=== PATIENT | female | born 1945 | race Caucasian/White ===

== ENCOUNTER → 2016-07-06 | Outpatient (CLI) | payer BC ==
[~2016-07-06] MED LIST: ADVIL200 M1 PO; ASPIRIN PO; AVAPRO PO; AZULFIDINE PO; CALCIUM 500 + D1 TAB PO; CALCIUM 600 +1 EA11 PO; COLACE PO; EFFEXOR PO; FOLIC ACID PO; HYDROCODON-ACE1 EAC7 PO; IMURAN50 MG PO; KEFLEX500 MG PO; LORTAB 10-5001 EACH PO; METHOTREXATE2.5 MG PO; NORVASC10 MG PO; PERCOCET; PHENERGAN25 M1 PO; PLAQUENIL200 MG PO; PRAVACHOL PO; PRILOSEC20 M1 PO; PROTONIX PO; SYNTHROID PO; SYNTHROID125 PO; VENLAFAXINE H37.5 M2 PO; VITAMIN D; ZINC; [UNRECOGNIZED DRUG - OTHER]
--- NOTE | ~2016-07-06 | CT57 ---
[facility] A Service of [facility] & [facility] RADIOLOGY TEXT RESULTS PATIENT: CHALO DICKSON LOCATION: [facility] : 43 UNIT #: [id number] AGE: [address]: Tae Sauceda MD SEX: F ORDER DR: [id number] [facility] [address] [facility]. [place], [place] [address] [id number] O MR#: [id number] Acc #: [id number] NAME: CHALO DICKSON : 1945 SEX: F STUDY DATE/TIME: 07/06/2016 14:15 UNIT: [facility] ROOM: STUDY DESCRIPTION: CT Chest Wo Cont Attending Physician: Tae Sauceda M.D. Referring Physician: Tae Sauceda M.D. Ordering Physician: Tae Sauceda M.D. Primary Care Physician: Guadalupe Neri M.D. MEDICAL IMAGING REPORT This report is preliminary unless electronic signature is present EXAM High-resolution chest CT INDICATIONS Followup pulmonary fibrosis. Shortness of breath for [address] of the chest was performed without contrast. Selected HRCT imaging was obtained in the supine and prone positioning. Comparison is made with 07/07/2013. The CT exam was performed with one or more of the following radiation dose reduction techniques: automatic exposure control, adjustment of mA and/or kV according to patient size, and iterative reconstruction. FINDINGS Redemonstrated are interstitial fibrotic changes within the lung. There is stable lower zone prominent pulmonary fibrosis with traction bronchiectasis, interstitial thickening and honeycombing. There is also scarring, volume loss and bronchiectasis within the left upper lobe without similar features in the right upper lobe. Patient had history of left mastectomy and left breast cancer and this is felt to represent probably postradiation change. The scarring in the left apex has become more confluent. There is no evidence for suspicious pulmonary nodule. There is no suspicious lymphadenopathy or pleural effusion. Coronary artery calcifications. Limited imaging of the upper abdomen unremarkable. Bone windows are unremarkable. IMPRESSION 1. There is bilateral lower zone predominant interstitial pulmonary fibrosis with honeycombing the degree of which is not significantly STS. [facility] A Service of [facility] & [facility] RADIOLOGY TEXT RESULTS PATIENT: CHALO DICKSON [facility] UNIT #: [id number] AGE: [address]: Tae Sauceda MD SEX: F ORDER DR: changed compared with study from 2013. 2. There is scarring, volume loss and bronchiectasis involving the left upper lobe with more confluent scarring in the left apex compared with the previous study. This is felt to most likely represent post-treatment change as the patient has a history of left breast cancer. Dictated by... Darrel Caldwell M.D. THIS IS AN ELECTRONICALLY VERIFIED REPORT Darrel Caldwell M.D. at 07/08/2016 5:12 PM Aramis TD: 07/07/2016 08:34 JOB #: [id number] MEDICAL IMAGING REPORT Page 1 of 1 COPY
== END | disposition home or self-care (01) ==
LOC: CCAT 13:53
DX: J84.9 Interstitial pulmonary disease, unspecified (principal); J84.10 Pulmonary fibrosis, unspecified; J98.4 Other disorders of lung
CPT/HCPCS: 71250

== ENCOUNTER → 2016-07-24 | Outpatient (CLI) | payer BC ==
--- NOTE | ~2016-07-24 | MY8 ---
[facility] A Service of [facility] & [facility] RADIOLOGY TEXT RESULTS PATIENT: CHALO DICKSON LOCATION: [facility] : 43 UNIT #: [id number] AGE: [address]: Guadalupe Neri MD SEX: F ORDER DR: [id number] [facility] [address] [facility] [address] [facility]. [place], [place] [address] [id number] O MR#: [id number] Acc #: [id number] NAME: CHALO DICKSON : 1945 SEX: F STUDY DATE/TIME: 07/24/2016 13:29 UNIT: [facility] ROOM: STUDY DESCRIPTION: MY Mammogram Dx Dig Rt Attending Physician: Guadalupe Neri M.D. Ordering Physician: Guadalupe Neri M.D. Primary Care Physician: Guadalupe Neri M.D. MEDICAL IMAGING REPORT This report is preliminary unless electronic signature is present EXAM Unilateral right digital diagnostic mammogram and targeted right breast ultrasound, 07/24/2016 INDICATION 70-year-old female complaining of a palpable lump in the approximate 12 o'clock position right breast for the past month. History of breast cancer on the left status post mastectomy. Mastectomy in 2000. Additional history of Hodgkin's lymphoma. Status post chemotherapy and radiation therapy in 2001 and 2009. Family history of breast cancer in the patient's mother at age 50. TECHNIQUE CC, MLO and true lateral views of the right breast along with compression CC and compression MLO views of the right breast were obtained and reviewed with an FDA-approved CAD device. COMPARISON 07/01/2015, 06/20/2014, 11/07/2013, 05/06/2013 and 05/04/2013. FINDINGS The area of palpable concern was marked on the patient's skin by the technologist. Deep to the marker there is a 1.6 cm stellate asymmetry with small speckled microcalcifications that are indeterminate. This is new compared to the prior mammograms. Imaging features are suspicious for malignancy. The abnormality partially effaces with spot compression but persists. Remainder of the right breast demonstrates benign-appearing vascular and other benign dystrophic calcifications. There are biopsy clips in the upper outer right breast at about the 10 o'clock position, separate from the new intervally occurring stellate mass. There is no adenopathy. Ultrasound was thereafter performed. ULTRASOUND FINDINGS: The patient was initially scanned independently by [facility]. [facility] A Service of [facility] RADIOLOGY TEXT RESULTS PATIENT: CHALO DICKSON LOCATION: [facility] : 43 UNIT #: [id number] AGE: [address]: Guadalupe Neri MD SEX: F ORDER DR: the technologist and then rescanned in my presence. Limited physical exam (with patient consent) was also performed and demonstrates a hard fixed mass in the 12 o'clock position right breast about 5.0 cm from the nipple corresponding to the mammographic abnormality. Ultrasound demonstrates a hypoechoic solid irregularly marginated and angulated mass at 12 o'clock measuring about 1.8 x 1.7 x 1.7 cm. There is internal color flow and there is some degree of posterior acoustical shadowing. Imaging findings are concordant and highly suspicious for malignancy. Ultrasound-guided core biopsy is recommended for further assessment. In the 11 o'clock position of the right breast 5.0 cm from nipple, there is an oval-shaped wider than tall hypoechoic solid mass-like area measuring approximately 2.7 x 2.3 x 0.9 cm. There is no distinct correlate on the mammogram. Suggest ultrasound-guided core biopsy of this area as well. Findings and recommendation for biopsy have been discussed with the patient. She is not on any blood thinners that would preclude biopsy. I have also personally contacted the breast manager long term care regarding recommendations for biopsy and the office of Dr. Guadalupe Neri will be contacted regarding the need for biopsy and scheduling of the procedure. The patient has voiced understanding and agreement with respect to the need for biopsy. IMPRESSION 1. Abnormal examination. New suspicious stellate mass in the 12 o'clock position of the right breast visible mammographically and on ultrasound and palpable to the patient and myself. This should be further evaluated with ultrasound-guided core biopsy. See discussion above. The breast manager long term care and the patient are both aware of the recommendation for biopsy. 2. There is an additional, wider than tall but solid appearing mass in the 11 o'clock position right breast. It is only visible with ultrasound and should also be further evaluated with ultrasound-guided core biopsy. Patients over the age of 40 are entered into a reminder system with target due date for the next mammogram. A result letter will also be sent to the patient. BIRADS 4 Suspicious Abnormality; Biopsy Should Be Considered STAT * RESULT Dictated by... Brandon Blood M.D. THIS IS AN ELECTRONICALLY VERIFIED REPORT Brandon Blood M.D. at 07/24/2016 5:00 PM [facility] A Service of [facility] RADIOLOGY TEXT RESULTS PATIENT: CHALO DICKSON [id number] 43 UNIT #: [id number] AGE: [address]: Guadalupe Neri MD SEX: F ORDER DR: YNES/rosa m TD: 07/24/2016 14:37 JOB #: [id number] MEDICAL IMAGING REPORT Page 1 of 1 COPY
--- NOTE | ~2016-07-24 | US24 ---
[facility] A Service of [facility] & [facility] RADIOLOGY TEXT RESULTS PATIENT: CHALO DICKSON LOCATION: [facility] : 43 UNIT #: [id number] AGE: [address]: Guadalupe Neri MD SEX: F ORDER DR: [id number] [facility] [address] [facility]. [place], [place] [address] [id number] O MR#: [id number] Acc #: [id number] NAME: CHALO DICKSON : 1945 SEX: F STUDY DATE/TIME: 07/24/2016 13:58 UNIT: [facility] ROOM: STUDY DESCRIPTION: US Breast Unilateral Attending Physician: Guadalupe Neri M.D. Ordering Physician: Guadalupe Neri M.D. Primary Care Physician: Guadalupe Neri M.D. MEDICAL IMAGING REPORT This report is preliminary unless electronic signature is present EXAM Targeted ultrasound of the right breast 07/24/2016 INDICATIONS History of breast cancer on the left. Status post left mastectomy. New palpable lump in the right breast for the past month. Correlation with diagnostic mammography same date. Sonographic imaging of the area of palpable concern and in the area of the patient's mammographic abnormality of the right breast was performed. Result text under Unilateral right digital diagnostic mammogram and targeted right breast ultrasound 07/24/2016. Please see this order for result text. BIRADS: 4 - Suspicious abnormality - Biopsy should be considered STAT * RESULT Dictated by... Brandon Blood M.D. THIS IS AN ELECTRONICALLY VERIFIED REPORT Brandon Blood M.D. at 07/24/2016 4:59 PM Veena TD: 07/24/2016 15:05 JOB #: [id number] MEDICAL IMAGING REPORT Page 1 of 1 COPY
== END | disposition home or self-care (01) ==
LOC: CMAM 13:00
DX: N63 Unspecified lump in breast (principal); R92.8 Other abnormal and inconclusive findings on diagnostic imaging of breast
CPT/HCPCS: 76641; G0206

== ENCOUNTER → 2016-08-18 | Outpatient (CLI) | payer BC ==
--- NOTE | ~2016-08-18 | US200 ---
[facility] A Service of [facility] & [facility] RADIOLOGY TEXT RESULTS PATIENT: CHALO DICKSON LOCATION: [facility] : 43 UNIT #: [id number] AGE: [address]: Flavio Herrera MD SEX: F ORDER DR: [id number] [facility] [address] [facility]. [place], [place] [address] [id number] O MR#: [id number] Acc #: [id number] NAME: CHALO DICKSON. : 1945 SEX: F STUDY DATE/TIME: 08/18/2016 8:13 UNIT: [facility] ROOM: STUDY DESCRIPTION: US Breast Guided Bx 1st Lesion Attending Physician: Flavio Herrera M.D. Referring Physician: Flavio Herrera M.D. Ordering Physician: Flavio Herrera M.D. Primary Care Physician: Flavio Herrera M.D. MEDICAL IMAGING REPORT This report is preliminary unless electronic signature is present EXAM Ultrasound guided breast biopsies. INDICATION Right breast mass. History of left-sided breast cancer status post left nephrectomy. FINDINGS The risks and benefits of the procedure were discussed with the patient. Specifically, the risks of bleeding and infection were emphasized. The patient was given the opportunity to ask questions and informed consent was obtained. The patient's lesions in the right breast were reconfirmed with ultrasound. There is a large 1.8 cm mass 12 o'clock position right breast and a ovoid mass in the 11 o'clock position measuring 2.7 cm. The appropriate location of the superior right breast was marked for needle entry site. The area was prepped and draped in the usual sterile fashion. 1% lidocaine was infiltrated in the skin and along the expected path of the biopsy needle. Initially, the 12 o'clock mass was targeted. 3 14-gauge 2-cm biopsies were obtained with the Achieve biopsy needle. Samples were of excellent quality. Next, 3 14-gauge Achieve biopsies were obtained through the 11 o'clock lesion under ultrasound guidance. Pressure was held over the skin entry site and biopsy sites for 5 minutes for hemostasis. 2 clips, were deployed within the biopsy lesions. At the 12 o'clock position, a U-shaped clip was inserted. At the 11 o'clock position, bow-tie shaped clip was deployed. IMPRESSION STS. [facility] A Service of [facility] & [facility] RADIOLOGY TEXT RESULTS PATIENT: CHALO DICKSON LOCATION: [facility] : 43 UNIT #: [id number] AGE: [address]: Flavio Herrera MD SEX: F ORDER DR: Successful ultrasound-guided biopsy of 12 o'clock and 11 o'clock breast masses. Successful clip deployment status post biopsy. Dictated by... Kael Mccracken M.D. THIS IS AN ELECTRONICALLY VERIFIED REPORT Kael Mccracken M.D. at 08/18/2016 4:46 PM Krystina TD: 08/18/2016 13:58 JOB #: [id number] ADDENDUM The patient's pathology was reviewed. The final pathology was diagnosed as invasive carcinoma of the breast with apocrine features. This is concordant with the imaging findings. There is a second biopsied lesions at the 11 o'clock position that is also positive for malignancy. STAT * RESULT Dictated by... Kael Mccracken M.D. THIS IS AN ELECTRONICALLY VERIFIED REPORT Kael Mccracken M.D. at 08/30/2016 10:29 PM Skinny TD: 08/30/2016 10:48 JOB #: [id number] MEDICAL IMAGING REPORT Page 1 of 1 COPY
--- NOTE | ~2016-08-18 | MY14 ---
[facility] A Service of [facility] & [facility] RADIOLOGY TEXT RESULTS PATIENT: CHALO DICKSON LOCATION: [facility] : 43 UNIT #: [id number] AGE: [address]: Flavio Herrera MD SEX: F ORDER DR: [id number] [facility] [address] [place], [place] [address] [id number] O MR#: [id number] Acc #: [id number] NAME: CHALO DICKSON : 1945 SEX: F STUDY DATE/TIME: 08/18/2016 9:03 UNIT: [facility] ROOM: STUDY DESCRIPTION: MY Post Bx Film Attending Physician: Flavio Herrera M.D. Referring Physician: Flavio Herrera M.D. Ordering Physician: Flavio Herrera M.D. Primary Care Physician: Flavio Herrera M.D. MEDICAL IMAGING REPORT This report is preliminary unless electronic signature is present EXAM Right breast mass. Ultrasound-guided core needle biopsy and clip deployment. FINDINGS CC and ML views of the right breast were obtained. There are 2 new biopsy clips in the superior right breast demarcating the ultrasound guided core biopsy. IMPRESSION Successful clip deployment status post ultrasound-guided core biopsy. Dictated by... Kael Mccracken M.D. THIS IS AN ELECTRONICALLY VERIFIED REPORT Kael Mccracken M.D. at 08/18/2016 4:46 PM Shahid/isaura TD: 08/18/2016 14:00 JOB #: [id number] MEDICAL IMAGING REPORT Page 1 of 1 COPY
== END | disposition home or self-care (01) ==
LOC: CWCC 07:48
DX: C50.411 Malignant neoplasm of upper-outer quadrant of right female breast (principal); R92.0 Mammographic microcalcification found on diagnostic imaging of breast
CPT/HCPCS: 88305; 88342; G0204

== ENCOUNTER → 2016-09-08 | Outpatient (CLI) | payer BC ==
--- NOTE | ~2016-09-08 | EKG ---
PATIENT: CHALO DICKSON UNIT #: [id number] Ventricular Rate: 67 BPM Atrial Rate: 67 BPM P-R Interval: 130 ms QRS Duration: 118 ms Q-T Interval: 446 ms QTC Calculation(Bezet): 471 ms P [place]: 33 degrees Calculated R [place]: -36 degrees Calculated T [place]: 3 degrees Diagnosis Line: Normal sinus rhythm Diagnosis Line: Left axis deviation Diagnosis Line: Left ventricular hypertrophy with QRS widening Diagnosis Line: Cannot rule out Septal infarct , age undetermined Diagnosis Line: Abnormal ECG Diagnosis Line: When compared with ECG of 08-APR-2009 16:10, Diagnosis Line: QRS duration has increased Diagnosis Line: Minimal criteria for Septal infarct are now Diagnosis Line: Present Diagnosis Line: Significant changes have occurred Diagnosis Line: Confirmed by NIKITA MATT MD ([id number]) on Diagnosis Line: 09/08/2016 4:28:07 PM INTERPRETING MD: LEONEL
[2016-09-08 12:01] LABS: HEMATOCRIT 40.6 % (35.0-45.0); HEMOGLOBIN 13.2 gm/dL (12.0-16.0); MEAN CELL VOLUME 85.5 FL (83-96); MEAN CORPUSCULAR HEMOGLOBIN 27.7 PG (28-34); MEAN CORPUSCULAR HGB CONC 32.4 g/dL (30-36); MEAN PLATELET VOLUME 7.8 FL (6.5-11.5); RED BLOOD COUNT 4.75 X10e (3.90-5.30); RED CELL DISTRIBUTION WIDTH 15.1 % (11.0-15.5); WHITE BLOOD COUNT 3.7 X10e3 (4.0-10.5)
[2016-09-08 12:30] LABS: ALBUMIN SERUM 4.4 g/dL (3.5-5.0); BILIRUBIN,TOTAL 0.6 mg/dL (0.2-2.0); CALCIUM SERUM 9.5 mg/dL (8.4-10.2); CREATININE SERUM 0.5 mg/dL (0.6-1.4); GLOM FILT RATE Estimated 96.7 mL/min (>60); POTASSIUM 4.5 mmol/L (3.5-5.1); PROTEIN TOTAL SERUM 7.1 g/dL (6.0-8.3)
== END | disposition home or self-care (01) ==
LOC: CAMB 10:43
PROVIDERS: Specialist
DX: Z01.818 Encounter for other preprocedural examination (principal); R22.2 Localized swelling, mass and lump, trunk
CPT/HCPCS: 36415; 80053; 85027; 93005

== ENCOUNTER 2016-10-01 08:47 | Observation (INO) | payer BC, MEDICARE ==
[~2016-10-01] VITALS: Ht 167.6 cm; Wt 57.3 kg
--- NOTE | ~2016-10-01 | NM79 ---
[facility] A Service of [facility] & [facility] RADIOLOGY TEXT RESULTS PATIENT: CHALO DICKSON LOCATION: [place] [address] : 41 UNIT #: [id number] AGE: [address]: William Marcus MD SEX: F ORDER DR: [id number] [facility] [address] [facility]. [place], [place] [address] [id number] O MR#: [id number] Acc #: [id number] NAME: CHALO DICKSON : 1945 SEX: F STUDY DATE/TIME: 10/01/2016 10:29 UNIT: [facility] ROOM: STUDY DESCRIPTION: NM [place] Node Inj Attending Physician: William Marcus M.D. Referring Physician: William Marcus M.D. Ordering Physician: William Marcus M.D. Primary Care Physician: Guadalupe Neri M.D. MEDICAL IMAGING REPORT This report is preliminary unless electronic signature is present EXAM [place] node injection, 10/01 INDICATION [place] node mapping at time of right mastectomy for breast cancer today. FINDINGS The patient's identity was confirmed. The right periareolar breast was wiped with an alcohol prep pad. Then, a series of four intradermal injections were made in the right periareolar breast at the 12 o'clock, 3 o'clock, 6 o'clock, and 9 o'clock positions. A total of 573 mcCi of technetium-99m filtered sulfur colloid were injected at 10:15 a.m. No complication. IMPRESSION Successful injection of the right periareolar breast with 573 mcCi of technetium-99m filtered sulfur colloid for sentinel node mapping today. Dictated by... Flavio Moncada Jr., M.D. THIS IS AN ELECTRONICALLY VERIFIED REPORT Flavio Moncada Jr., M.D. at 10/01/2016 4:49 PM Fredy TD: 10/01/2016 12:20 JOB #: [id number] MEDICAL IMAGING REPORT Page 1 of 1 COPY
--- NOTE | ~2016-10-01 | OR ---
Unit #: [id number] #: [id number] Patient: CHALO DICKSON [id number] [address] [place], [place] [address] [id number] I MR#: [id number] NAME: CHALO DICKSON ROOM: [facility] Date of Procedure: 10/01/2016 Admission Date: 10/01/2016 Surgeon: William Marcus M.D. : 1945 Attending Physician: William Marcus M.D. Referring Physician: William Marcus M.D. Primary Care Physician: Guadalupe Neri M.D. OPERATIVE REPORT PREOPERATIVE DIAGNOSIS Carcinoma, right breast upper aspect. POSTOPERATIVE DIAGNOSIS Carcinoma, right breast upper aspect. PROCEDURES PERFORMED Right modified radical mastectomy. ANESTHESIA General LMA anesthesia with 0.5% Marcaine plain local anesthesia. FINDINGS There was no uptake in the axilla that could be found by the radioactive nuclide or with Lymphazurin blue. As a result, an axillary dissection was performed en bloc with the breast. SPECIMENS Sent to pathology. COMPLICATIONS None apparent. CONDITION The patient tolerated the procedure well. INDICATIONS FOR PROCEDURE The patient is a 70-year-old white female, who is status post left mastectomy many years ago. She recently found a palpable mass in the right breast upper aspect. It was fairly large and easily palpable. The patient underwent mammography and ultrasound guided biopsy, which revealed this to be a carcinoma. She was presented with the several options; however, due to the size, location, and her previous surgery, it was felt best to proceed with right mastectomy with right axillary sentinel node biopsy. DESCRIPTION OF PROCEDURE After obtaining informed consent as well as receiving preoperative antibiotics and knee-high SCDs, the patient who earlier in the day had undergone injection beneath the right nipple areolar complex with radioactive sulfur colloid. She was brought to the operating room and after adequate general LMA anesthesia was obtained, had sterile injection Unit #: [id number] #: [id number] Patient: CHALO DICKSON of Lymphazurin blue beneath the right nipple areolar complex and it was then massaged for 5 minutes by the clock. At this point in time, the right breast, axilla, chest, and upper abdomen were prepped and draped in a sterile fashion. An elliptical incision was made with a knife around the nipple-areolar complex. The superior aspect incision was placed above the area of the palpable mass in order to obtain good margins. It was taken down through the skin with a knife and through the subdermal tissues and subcutaneous tissues with electrocautery with good hemostasis. The superior flap was raised to the level of the pectoralis major muscle beneath the right clavicle. An inferior flap was raised to the lower right chest wall. Dissection was taken over to the area of the axilla. Using the Neoprobe as a guide, there was no radioactivity that could be found in the right axilla. There was no evidence of any blue lymphatics or blue lymph nodes present either. As a result, it was felt best to proceed with a right axillary dissection en bloc with the right mastectomy. Dissection was taken into the right axilla. The contents were swept inferiorly from the right axillary vein. The feeding vessels were taken with micro-clips as well as medium-sized clips and 3-0 Vicryl ties. The axillary contents were dissected free and removed en bloc with the right mastectomy specimen. The right mastectomy specimen had been removed taking the pectoralis major fascia off from medial to lateral. The specimen was oriented for the pathologist and sent to pathology. The wound was irrigated. Hemostasis was obtained with the Bovie. Two 10-flat Abrahan-Navarro drains were placed into proper position, one was placed over the pectoralis major musculature and a loop of 3-0 chromic was used to hold in from migrating. This was placed loosely. The other was placed into the right axilla. Both were secured with 2-0 silk sutures. The subdermal tissues were reapproximated with a running 3-0 Vicryl suture. The skin was closed with a running 4-0 subcuticular stitch. Benzoin and Steri-Strips were applied over the wound in an occlusive manner followed by fluffs, Kerlix wrap, and an Eliud wrap, and split dressings around the drain sites. Needle counts, sponge counts, and instrument counts were all correct as reported by the scrub nurse x2. The patient went from the operative room to the recovery room in stable condition. Dictated by... Shikha Anglin/mely TD: 10/01/2016 17:15 JOB #: [id number] Flavio Herrera M.D. [facility] OPERATIVE REPORT Page 1 of 1 X William Marcus MD X PROCEDURE OPERATIVE NOTE
--- NOTE | ~2016-10-01 | HP ---
Unit #: [id number] #: [id number] Patient: CHALO DICKSON [id number] [address] [place], [place] [address] [id number] MR#: [id number] NAME: CHALO DICKSON ROOM: 450 Age: 71 Sex: F Admission Date: 10/01/2016 : 1945 Attending Physician: William Marcus M.D. Referring Physician: William Marcus M.D. Primary Care Physician: Guadalupe Neri M.D. HISTORY AND PHYSICAL The patient is a 70-year-old white female who presented with a palpable mass and a radiographic stellate abnormality in the right breast. This is suspicious for malignancy. She has previous left mastectomy 17 years ago for breast cancer and underwent postop chemotherapy and radiation therapy. In 2009 she developed Hodgkin lymphoma and underwent chemoradiation therapy for that. She subsequently developed Sjogren syndrome and has lost some weight. The patient had a biopsy performed to the right breast abnormality and returned as carcinoma. She presents at this time for further evaluation and treatment. ALLERGIES No known medical allergies. MEDICATIONS Amlodipine, calcium, Effexor, Imuran, levothyroxine and Plaquenil. PAST MEDICAL HISTORY Left breast cancer. PAST SURGICAL HISTORY Left mastectomy, cataract surgery, hysterectomy, and tubal ligation. FAMILY HISTORY Positive for breast cancer, hypertension, diabetes, and heart disease. SOCIAL HISTORY No alcohol use. Former smoker. REVIEW OF SYSTEMS Negative except for above. IMMUNIZATION STATUS Unknown. PHYSICAL EXAMINATION GENERAL: Well developed, well nourished, white female in no apparent distress. VITAL SIGNS: Afebrile, vitals signs stable NECK: Supple. No thyromegaly or adenopathy. BACK: No CVA or spinous tenderness. CHEST: Breath sounds bilaterally to auscultation clear. CARDIAC: Regular rate and rhythm. ABDOMEN: Flat, soft and nontender. BREASTS: Examination of the right breast reveals a palpable mass at the Unit #: [id number] #: [id number] Patient: CHALO DICKSON 12 o'clock position. This is not affixed. There is no palpable adenopathy bilaterally. The patient's left mastectomy site has no evidence of recurrence. DIAGNOSTIC STUDIES LABORATORY STUDIES: Pending. IMPRESSION 70-year-old white female with right breast cancer. We have had a long conversation with her regarding several biopsies and because of the size and location we feel it is best to proceed with mastectomy. All of the risks and benefits have been fully explained to the patient in detail. Including the risk of bleeding, infection, neurovascular injury, temporary or permanent lymphedema, wind problems, additional surgery, as well as other risks. She understands completely and requests to proceed. Dictated by Shikha Anglin/carlos TD: 10/29/2016 10:19 JOB #: [id number] CC: [facility] Rojas Carmona M.D. HISTORY AND PHYSICAL Page 1 of 1 X William Marcus MD X HISTORY AND PHYSICAL
[~2016-10-01 08:47] MED LIST changes: -HYDROCODON-ACE1 EAC7 PO; -KEFLEX500 MG PO; -PHENERGAN25 M1 PO
[2016-10-01 10:35] LABS: BASOPHIL% 0.4 % (0-2.5); DIFF IND NO; EOSINOPHIL# 0.4 X10e3 (0-0.7); EOSINOPHIL% 9.2 % (0.0-7.0); HEMATOCRIT 37.7 % (35.0-45.0); HEMOGLOBIN 12.5 gm/dL (12.0-16.0); LYMPHOCYTE# 0.5 X10e3 (1.0-3.5); LYMPHOCYTE% 13.5 % (17.0-45.0); MEAN CELL VOLUME 84.2 FL (83-96); MEAN CORPUSCULAR HEMOGLOBIN 28.1 PG (28-34); MEAN CORPUSCULAR HGB CONC 33.3 g/dL (30-36); MEAN PLATELET VOLUME 7.5 FL (6.5-11.5); MONOCYTE# 0.4 X10e3 (0-1.0); MONOCYTE% 10.2 % (3.0-12.0); NEUTROPHIL# 2.6 X10e3 (1.5-7.1); NEUTROPHIL% 66.7 % (40-75); PLATELET COUNT 155 X10e3 (140-420); RED BLOOD COUNT 4.47 X10e (3.90-5.30); RED CELL DISTRIBUTION WIDTH 14.5 % (11.0-15.5); WHITE BLOOD COUNT 3.9 X10e3 (4.0-10.5)
[2016-10-01 11:08] LABS: ALBUMIN SERUM 4.1 g/dL (3.5-5.0); BILIRUBIN,TOTAL 0.4 mg/dL (0.2-2.0); BUN/CREATININE RATIO 23.33; CALCIUM SERUM 9.4 mg/dL (8.4-10.2); CREATININE SERUM 0.6 mg/dL (0.6-1.4); GLOM FILT RATE Estimated 91.1 mL/min (>60); POTASSIUM 4.3 mmol/L (3.5-5.1)
[2016-10-02] MEDS ORDERED: HYDROCODON-ACE1 EAC7 PO (10:05)
[2016-10-02] MEDS ORDERED: PHENERGAN25 M1 PO (10:16)
[2016-10-02] MEDS ORDERED: KEFLEX500 MG PO (10:17)
== END 2016-10-02 12:00 | disposition home or self-care (01) | DRG 599 ==
LOC: CNUC 08:47 → CPACUOF 09:15 → CNUC 10:00 → CPACUOF 11:26 → C4B 16:25 → CNUC 10-13 09:00 → CSUR 10-13 11:30
PROVIDERS: Surgery
DX: C50.111 Malignant neoplasm of central portion of right female breast (principal); N60.21 Fibroadenosis of right breast; N60.81 Other benign mammary dysplasias of right breast; E03.9 Hypothyroidism, unspecified; M19.90 Unspecified osteoarthritis, unspecified site; I10 Essential (primary) hypertension; M81.0 Age-related osteoporosis without current pathological fracture; E78.00 Pure hypercholesterolemia, unspecified; Z17.1 Estrogen receptor negative status [ER-]; Z87.891 Personal history of nicotine dependence; Z79.899 Other long term (current) drug therapy; Z90.12 Acquired absence of left breast and nipple; Z98.51 Tubal ligation status; Z90.710 Acquired absence of both cervix and uterus; Z98.41 Cataract extraction status, right eye; Z98.890 Other specified postprocedural states
CPT/HCPCS: 80053; 85025; 88309; 96374; 96376; A9541; G0378; J0131; J0690; J1100; J1170; J2405; J2550; J3010

== ENCOUNTER → 2016-10-20 | Outpatient (CLI) | payer BC ==
[~2016-10-20] MED LIST changes: +HYDROCODON-ACE1 EAC7 PO; +KEFLEX500 MG PO; +PHENERGAN25 M1 PO
--- NOTE | ~2016-10-20 | NM8 ---
[facility] A Service of [facility] & [facility] RADIOLOGY TEXT RESULTS PATIENT: CHALO DICKSON LOCATION: [facility] : 43 UNIT #: [id number] AGE: [address]: Ramya Kidd SEX: F ORDER DR: [id number] [facility] [address] [place], [place] [address] [id number] O MR#: [id number] Acc #: [id number] NAME: CHALO DICKSON : 1945 SEX: F STUDY DATE/TIME: 10/20/2016 11:07 UNIT: [facility] ROOM: STUDY DESCRIPTION: NM Bone or Joint Whole Body Attending Physician: Ramya Kidd Aprn Referring Physician: Ramya Kidd Aprn Ordering Physician: Ramya Kidd Aprn Primary Care Physician: Guadalupe Neri M.D. MEDICAL IMAGING REPORT This report is preliminary unless electronic signature is present EXAM Whole-body bone scan, 10/20/2016. HISTORY Order states cancer of central portion of right breast, stage 3. History sheet states breast cancer staging. Low back and right hip pain for 3 months. Left mastectomy 2000. Right mastectomy September 2016. History of Hodgkin lymphoma 2009. Kyphoplasty in the spine about 5 years ago. COMPARISON CTs chest, abdomen, and pelvis 10/20/2016. Whole-body bone scans 06/29/2005 and 03/18/2021. FINDINGS There is a new focus of rounded [id number] increased uptake in the right calvaria, probably in the frontal bone. There are no recent head CTs or MRIs for correlation. It is most likely metastatic given the findings below. There is a new focus of marked increased uptake in the right ischium. When correlated with the CT of 10/20/2016, there is asymmetric sclerosis of the right ischium compared to the left and findings are most compatible with metastatic disease. The CT demonstrated lytic lesion in the left superomedial iliac bone shows no scintigraphic uptake. There is mild increased uptake of the L1 vertebral body correlating with a kyphoplasty focus by CT dated 10/20/2016.. There is a new focus of mild increased uptake in the left T7 costotransverse region without definite lytic or sclerotic lesion by CT. This is therefore indeterminate for definite metastatic disease. [facility] A Service of [facility] & [facility] RADIOLOGY TEXT RESULTS PATIENT: CHALO DICKSON LOCATION: [facility] : 43 UNIT #: [id number] AGE: [address]: Ramya Kidd SEX: F ORDER DR: There is a focus of mild increased uptake in the upper thoracic spine which appears to correlate with the T4 level. This finding is new compared to most recent bone scan of 2009. No definite lytic or sclerotic lesion to confirm metastatic disease in this location is noted. There is minimal right breast uptake, likely related to recent reported biopsy. There is abnormal uptake in 2 or 3 right lateral lower ribs. No definite CT correlative findings are noted; however, the findings are suspicious for metastatic disease. There is also a focus of abnormal uptake in the right lower femoral neck and intertrochanteric region. There is equivocal minimal asymmetric increased density in this region on the CT, suspicious but not confirmatory for sclerotic metastatic disease. Kidneys are visualized. The remainder of the whole-body bone scan is normal. IMPRESSION 1. Sclerotic metastatic lesion of the right ischium confirmed by CT on 10/20/2016. The lytic lesion in the left superomedial iliac bone is scintigraphically occult. Therefore the patient has mixed sclerotic and osteolytic metastatic disease. 2. Probable additional metastatic lesions of the right calvaria, right ribs, and right lower femoral neck and intertrochanteric region (the latter demonstrates minimal CT finding detailed above). 3. New abnormal uptake in the upper thoracic approximate T3 or T4 level as well as the left T10 costotransverse region, suspicious for additional metastatic disease without correlative CT findings. 4. L1 kyphoplasty with minimal residual uptake. Dictated by... Julia Burger M.D. THIS IS AN ELECTRONICALLY VERIFIED REPORT Julia Burger M.D. at 10/22/2016 1:44 PM PABLO/rock TD: 10/22/2016 09:38 JOB #: [id number] MEDICAL IMAGING REPORT Page 1 of 1 COPY
--- NOTE | ~2016-10-20 | CT55 ---
[facility] A Service of [facility] & [facility] RADIOLOGY TEXT RESULTS PATIENT: CHALO DICKSON LOCATION: [facility] : 43 UNIT #: [id number] AGE: [address]: Ramya Kidd SEX: F ORDER DR: [id number] [facility] [address] [place], [place] [address] [id number] O MR#: [id number] Acc #: [id number] NAME: CHALO DICKSON : 1945 SEX: F STUDY DATE/TIME: 10/20/2016 9:35 UNIT: [facility] ROOM: STUDY DESCRIPTION: CT Chest W Con Attending Physician: Ramya Kidd Aprn Referring Physician: Ramya Kidd Aprn Ordering Physician: Ramya Kidd Aprn Primary Care Physician: Guadalupe Neri M.D. MEDICAL IMAGING REPORT This report is preliminary unless electronic signature is present EXAM CT of the chest. HISTORY: Breast cancer. Followup breast cancer. Left breast 2000. Right breast 2016. Hodgkin's lymphoma 2009. Prior chemotherapy and radiation. Last radiation 2009. The CT exam was performed with one or more of the following radiation dose reduction techniques: automatic exposure control, adjustment of mA and/or kV according to patient size, and iterative reconstruction. CT chest performed with intravenous administration of 100 mL Isovue-370. Comparison 07/06/2016. No axillary adenopathy. Changes of bilateral mastectomy. In the right mastectomy bed there is a well-circumscribed fluid density structure which may represent some form of breast prosthesis. It is new compared to the prior examination. Please correlate with operative history. Stable left mastectomy changes. No left axillary adenopathy. There are mildly prominent right axillary lymph nodes measuring up to about 1.5 cm in diameter. More pronounced than on the prior study. Correlate clinically. No mediastinal or hilar adenopathy. Heart upper limits of normal in size. No pleural effusions. Visualized liver unremarkable. Uncomplicated cholelithiasis. The spleen, pancreas, adrenal glands and visualized kidneys unremarkable. Esophagus, visualized portions of stomach, small bowel colon notable for uncomplicated colonic diverticulosis. The lungs show underlying emphysema. Subpleural chronic fibrotic change bilateral lung bases left greater than right with evidence of honeycombing. Stable. Calcified granuloma in the right upper lobe. New 3-4 mm ground-glass nodule in the periphery of the right lower lobe image number 38. Followup recommended. No suspicious left-sided nodules. The paramediastinal fibrotic change and left apical fibrotic change stable and favored to reflect prior radiation [facility] A Service of [facility] RADIOLOGY TEXT RESULTS PATIENT: CHALO DICKSON LOCATION: [facility] : 43 UNIT #: [id number] AGE: [address]: Ramya Kidd SEX: F ORDER DR: treatment given patient history. Areas of associated bronchiectasis in the left upper lobe and in the bilateral lung bases stable. No mucous plugging. The bony structures show evidence of previous L1 vertebroplasty. No acute-appearing bony abnormality. IMPRESSION 1. Compared to June 2016, there is a new 3-4 mm ground-glass nodule in the periphery of the right lower lobe (image 38). Indeterminate appearance. Given patient history, 6-month CT followup recommended. 2. Emphysema stable. 3. Bibasilar subpleural fibrotic changes with evidence of honeycombing stable and favored to reflect chronic interstitial fibrotic change. There is stable left paramediastinal and apical fibrotic change with some areas of confluent fibrosis at the left apex. This is stable and favored to reflect prior radiation given patient history. 4. In the interval from June 2016 the patient appears to have undergone right mastectomy and placement of a water density prosthesis. Correlate with surgical history. There are stable postoperative changes of left mastectomy. 5. There are mildly prominent right axillary lymph nodes measuring up to about 1.1 cm in short axis. New compared to June 2016. Indeterminate appearance. Correlate clinically. Attention at followup recommended. 6. Stable mild cardiac enlargement. 7. Uncomplicated cholelithiasis in the incompletely visualized gallbladder. 8. Uncomplicated transverse colon diverticulosis. Dictated by... Anand Michaud M.D. THIS IS AN ELECTRONICALLY VERIFIED REPORT Anand Mcihaud M.D. at 10/22/2016 6:35 PM VAMSI/kamille TD: 10/21/2016 12:19 JOB #: [id number] MEDICAL IMAGING REPORT Page 1 of 1 COPY
--- NOTE | ~2016-10-20 | CT2 ---
[facility] A Service of [facility] & [facility] RADIOLOGY TEXT RESULTS PATIENT: CHALO DICKSON LOCATION: [facility] : 41 UNIT #: [id number] AGE: [address]: Ramya Kidd SEX: F ORDER DR: [id number] [facility] [address] [place], [place] [address] [id number] O MR#: [id number] Acc #: [id number] NAME: CHALO DICKSON : 1945 SEX: F STUDY DATE/TIME: 10/20/2016 9:35 UNIT: [facility] ROOM: STUDY DESCRIPTION: CT Abd and Pelv W Cont Attending Physician: Ramya Kidd Aprn Referring Physician: Ramya Kidd Aprn Ordering Physician: Ramya Kidd Aprn Primary Care Physician: Guadalupe Neri M.D. MEDICAL IMAGING REPORT This report is preliminary unless electronic signature is present EXAM CT abdomen and pelvis, 10/20/2016 HISTORY Breast cancer. Left breast 2000, right breast 2016. Hodgkin's lymphoma 2009. Prior radiation and chemotherapy, left mastectomy. FINDINGS CT abdomen and pelvis performed with intravenous administration 100 mL Isovue-370. Enteric contrast also administered. This CT exam was performed with one or more of the following radiation dose reduction techniques: Automatic exposure control, adjustment of mA and/or kV according to patient size, and iterative reconstruction. Comparison 09/19/2012. Please see today's dedicated CT chest for a discussion of findings above diaphragm. The liver is unremarkable. Uncomplicated cholelithiasis. Spleen measures about 11.5 cm in craniocaudal extent. Previously 12.7 cm. The pancreas is unremarkable. Adrenal glands unremarkable. Kidneys show small, subcentimeter bilateral renal cysts. No acute abnormality or suspicious abnormality. CT PELVIS: No inguinal adenopathy. Urinary bladder unremarkable. Status post hysterectomy. Hyperdense nodule at the anterior-superior aspect of the vaginal cuff measuring 1.2 cm unchanged from 2012, favored to be benign in nature. There is no free fluid in the pelvis. No suspicious adnexal structures. No pelvic or retroperitoneal adenopathy. The distal esophagus, stomach, small bowel are unremarkable. Appendix normal. Colon shows uncomplicated distal colonic diverticulosis. Atherosclerotic arterial calcifications. No aneurysm. The bony structures show L1 vertebroplasty. Stable compression deformity L1. Stable grade I anterolisthesis L4 on L5. There does not appear to be significant spinal canal narrowing. There is a area of diminished mineralization in the STS. [facility] A Service of [facility] RADIOLOGY TEXT RESULTS PATIENT: CHALO DICKSON LOCATION: [facility] : 41 UNIT #: [id number] AGE: [address]: Ramya Kidd SEX: F ORDER DR: posterior left iliac bone measuring approximately 2.2 cm x 1.1 cm. Question cortical thinning and periosteal reaction or extraosseous extension along its left lateral aspect. The appearance is concerning for potential osseous metastatic disease. Consider assessment with radionuclide bone scan or CT PET scan. IMPRESSION 1. Please see today's dedicated CT of the chest for discussion of findings above diaphragm. No indication of solid organ metastatic disease in the abdomen or pelvis. No acute-appearing abnormality within the abdomen or pelvis. 2. Compared to 2013, there is a new area of relative lucency in the posterior left iliac bone measuring about 2.2 cm x 1.1 cm. Question a focus of periosteal reaction or extraosseous extension along its lateral aspect. The appearance is new compared to 2013 and raises concern for osseous metastatic disease. Best further evaluated with radionuclide bone scan or CT PET scan. 3. Stable grade I anterolisthesis L4 on L5 and stable appearance of L1 compression deformity and associated vertebroplasty. 4. Uncomplicated cholelithiasis. 5. 1.2 cm hyperdense nodule anterior aspect vaginal cuff unchanged from 2013 and felt to be benign in nature. Probably some form of complicated cyst. 6. Uncomplicated distal colonic diverticulosis. 7. Please see remainder of incidental findings in body of report above. Dictated by... Anand Michaud M.D. THIS IS AN ELECTRONICALLY VERIFIED REPORT Anand Michaud M.D. at 10/22/2016 6:35 PM VAMSI/nilson TD: 10/21/2016 21:55 JOB #: [id number] MEDICAL IMAGING REPORT Page 1 of 1 COPY
== END | disposition home or self-care (01) ==
LOC: CNUC 07:42
DX: C50.111 Malignant neoplasm of central portion of right female breast (principal); R91.1 Solitary pulmonary nodule; I51.7 Cardiomegaly; K57.30 Diverticulosis of large intestine without perforation or abscess without bleeding; K80.20 Calculus of gallbladder without cholecystitis without obstruction; M43.16 Spondylolisthesis, lumbar region; M89.551 Osteolysis, right thigh; Z90.12 Acquired absence of left breast and nipple
CPT/HCPCS: 71260; 74177; 78306; A9503; Q9967